=== PATIENT | female | born 1930 | race Caucasian/White ===

== ENCOUNTER → 2017-06-22 | Outpatient (REF) | payer MEDICARE, OTHER ==
[~2017-06-22] MED LIST: /PANT40TA; /WARF25TA; ALDA25TA2 PO; ALLO100T; ATEN25TA; ATEN25TA PO; BISA10SU2 RE; BISA5TA PO; CALCCHW12; COLA100C2 PO; FLU SHOT IM; LASI40TA PO; MAG-TAB; MILKSUS OR; PREM0.626; SIMETHICONE PO; ZANT150T; ZEST10TA; [UNRECOGNIZED DRUG - OTHER] IM
[2017-06-22 19:21] LABS: BASO % 0.5 % (0.0-1.0); EOS # 0.1 10^3/uL (0.0-0.50); EOS % 1.4 % (0.0-3.0); IMMATURE GRANULOCYTE % 0.3 % (0-0); LYMPH # 1.3 10^3/uL (1.5-4.5); LYMPH % 19.1 % (24.0-44.0); MEAN CORPUSCULAR HEMOGLOBIN 31.4 pg (27.0-33.0); MEAN CORPUSCULAR VOLUME 101.3 fl (80.0-96.0); MONO # 0.7 10^3/uL (0.0-0.8); MONO % 9.9 % (0.0-5.0); NEUTROPHILS # 4.5 10^3/uL (1.8-7.7); NEUTROPHILS % 68.8 % (36.0-66.0); PLATELET COUNT, AUTOMATED 144 10^3/uL (150-450); RED CELL DISTRIBUTION WIDTH 13.2 % (11.5-14.5); WHITE BLOOD COUNT 6.6 10^3/uL (4.0-10.0)
[2017-06-22 21:37] LABS: IMMUNOGLOBULIN M 90.8 MG/DL (40-230)
== END ==
LOC: M LAB REF 17:25
PROVIDERS: ATTEND Internal Medicine Pulmonary Disease
DX: R91.8 Other nonspecific abnormal finding of lung field (principal)

== ENCOUNTER → 2017-07-28 | Outpatient (CLI) | payer MEDICARE, BC ==
[~2017-07-28] MED LIST changes: +METHACHOLINE KIT (J7674) INH ONE
--- NOTE | 2017-07-28 13:17 | PFTRPT ---
Tech: Librado RAMIREZ RRT Age: 87 Sex: Female Race: Height: 63.50 Inches Weight: 145.00 Lbs BSA: 1.70 Diagnosis: R91.8 TECH NOTES: The test meets the ATS standards for acceptability and repeatability. IVC is less than 85% of VC. DLCO may be underestimated. PULMONARY FUNCTION REPORT: ORDERING PROVIDER: Charli Quick DO DATE OF SERVICE: 07/28/17 SPIROMETRY: The study is of excellent technical quality. Some difficulty with effort is noted. The forced vital capacity is normal. The FEV1 is in proportion. The obstructive index is, therefore, normal. FLOW VOLUME LOOP: The expiratory limb of the flow volume loop raises a question of effort. LUNG VOLUMES: The total lung capacity is mildly reduced. The residual volume is in proportion. DIFFUSION CAPACITY: The diffusion capacity is reduced, but is appropriate for alveolar volume. HEMOGLOBIN: Hemoglobin is acceptable at 12.1. AIRWAY MECHANICS: Airway resistance and conductance are normal. 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 Mild decline in the absolute diffusion capacity. Please correlate clinically. MTDD
--- NOTE | 2017-07-28 14:19 | PFTRPT ---
Tech: Librado RAMIREZ RRT Age: 87 Sex: Female Race: Height: 63.50 Inches Weight: 145.00 Lbs BSA: 1.70 Diagnosis: R91.8 TECH NOTES: The test meets the ATS standards for acceptability and repeatability. The patient was given eight puffs of albuterol for post bronchodilator. METHACHOLINE CHALLENGE REPORT ORDERING PROVIDER: Charli Quick DO DATE OF SERVICE: 07/28/17 INTERPRETATION: The study was of excellent technical quality. Under protocol, methacholine was administered. At a dose of 10 mg (63.875 CDUs), a 23% decline in the FEV1 was noted. The PC20 of 5.67 is significant. Flow rates did return to baseline post bronchodilator administration. IMPRESSION: Positive methacholine challenge study. MTDD
== END ==
LOC: M CARPUL 12:11
PROVIDERS: ATTEND Internal Medicine Pulmonary Disease
DX: R91.8 Other nonspecific abnormal finding of lung field (principal)
CPT/HCPCS: 36415; 85018; 94010; 94070; 94726; 94729; 95070; J7674